=== PATIENT | female | born 1965 | race Caucasian/White ===

== ENCOUNTER 2018-03-04 08:39 | Day surgery (SDC) | payer OTHER ==
[~2018-03-04] VITALS: Ht 165.1 cm; Wt 60.0 kg
[~2018-03-04 08:39] MED LIST: CEPH500 PO; FISH OIL 1,0001 EAC1 PO; Multiple Vitam1 EACH PO; OXYACE5T PO; PARO10 PO; [UNRECOGNIZED DRUG - OTHER] PO
== END 2018-03-04 11:05 | disposition home or self-care (01) ==
LOC: ORSCSDS 08:39
PROVIDERS: Internal Medicine Gastroenterology
PROC: 0DJD8ZZ Inspection of Lower Intestinal Tract, Via Natural or Artificial Opening Endoscopic (ICD-10-PCS; principal; 2018-03-04 10:00)
DX: Z12.11 Encounter for screening for malignant neoplasm of colon (principal); F41.9 Anxiety disorder, unspecified; K57.30 Diverticulosis of large intestine without perforation or abscess without bleeding; Z87.891 Personal history of nicotine dependence; Z79.899 Other long term (current) drug therapy
CPT/HCPCS: J7120

== ENCOUNTER → 2019-06-20 | Outpatient (CLI) | payer OTHER ==
[2019-06-22 14:07] LABS: HPV 16 Negative (Negative); HPV 18 Negative (Negative); HPV OTHER HR TYPES Negative (Negative)
== END | disposition home or self-care (01) ==
LOC: LAB 11:39 → LAB SHORT 11:39
PROVIDERS: Obstetrics & Gynecology
DX: Z01.419 Encounter for gynecological examination (general) (routine) without abnormal findings (principal)
CPT/HCPCS: 87624; G0123

== ENCOUNTER → 2020-05-30 | Outpatient (CLI) | payer OTHER ==
[~2020-05-30] MED LIST changes: +ESCITALOPRAM OX10 M1 PO; +GLUC500 PO; +HYDMOR2 PO; +KRILL OIL500 MG PO; +MSM500 MG PO; +MULTI-VITAMIN1 EAC2; +NICOTINE GUM2 M1 PO
== END | disposition home or self-care (01) ==
LOC: PLD 08:45 → LAB SHORT 08:45
DX: L60.2 Onychogryphosis (principal); B35.1 Tinea unguium
CPT/HCPCS: 88305; 88312

== ENCOUNTER 2021-12-08 13:07 | Day surgery (SDC) | payer OTHER ==
[~2021-12-08] VITALS: Ht 165.1 cm; Wt 66.1 kg
--- NOTE | 2021-12-08 15:50 | NUR ---
12/08/21 1550 Zhanna Canseco 0.15ML OF EPI 1MG/ML ADDED TO 30ML OF BUPIVICAINE 0.5% TO CREATE A SOLUTION OF BUPIVICAINE 0.5% WITH EPI 1:200,000.
== END 2021-12-08 16:59 | disposition home or self-care (01) ==
LOC: ORSCSDS 13:07
PROVIDERS: Orthopaedic Surgery
PROC: 0RPL04Z Removal of Internal Fixation Device from Right Elbow Joint, Open Approach (ICD-10-PCS; principal; 2021-12-08 14:30)
DX: T84.9XXA Unspecified complication of internal orthopedic prosthetic device, implant and graft, initial encounter (principal); K21.9 Gastro-esophageal reflux disease without esophagitis; F41.8 Other specified anxiety disorders; Z79.899 Other long term (current) drug therapy
CPT/HCPCS: A9270; J0171; J0690; J1100; J1885; J2250; J2405; J2704; J3010; J7120

== ENCOUNTER → 2023-10-12 | Outpatient (CLI) | payer OTHER ==
[2023-10-16 06:14] LABS: HPV GENOTYPE 16 Not Detected; HPV GENOTYPE 18 Not Detected; HPV HIGH RISK Not Detected; HPV SOURCE Vaginal
== END ==
LOC: LAB 11:46 → LAB SHORT 11:46
PROVIDERS: Obstetrics & Gynecology
DX: Z01.419 Encounter for gynecological examination (general) (routine) without abnormal findings (principal)
CPT/HCPCS: 87624; G0123